=== PATIENT | female | born 1945 | race Caucasian/White ===

== ENCOUNTER 2017-07-05 19:08 | Observation (INO) | payer MEDICARE, BC ==
[2017-07-05] MEDS ORDERED: ACETAMINOPHEN 500 MG 500 MG TAB PO ONE (20:08)
[2017-07-05] MEDS ORDERED: ACETAMINOPHEN 500 MG 500 MG TAB ONE (20:21)
[2017-07-05 20:40] LABS: APPEARANCE,URINE Clear; BILIRUBIN,URINE NEGATIVE (NEGATIVE); COLOR,URINE Yellow; GLUCOSE, URINE (UA) NEGATIVE (NEGATIVE); KETONES,URINE NEGATIVE (NEGATIVE); LEUKOCYTE ESTERASE ,URINE 1+ (NEGATIVE); NITRATE,URINE NEGATIVE (NEGATIVE); OCCULT BLOOD,URINE NEGATIVE (NEG-TRACE); UROBILINOGEN,URINE 0.2 (0.2-1.0 EU)
[2017-07-05 20:47] LABS: RBC,URINE NEG (0-3AV/HPF)
[2017-07-05 21:01] LABS: BASOPHILS % (AUTO) 1 % (0-3); EOSINOPHILS % (AUTO) 0 % (0-9); HEMATOCRIT 22 % (35-47); MEAN CORPUSCULAR HGB CONC 34.4 gm/dl (32.0-36.0); NEUTROPHILS % (AUTO) 88.2 % (37-80)
[2017-07-05 21:11] LABS: MEAN CORPUSCULAR VOLUME 101 fL (81-99)
[2017-07-05 21:12] LABS: ANISOCYTOSIS SLIGHT AMT; OVALOCYTES PRESENT
[2017-07-05 21:16] LABS: CALCIUM 8.8 mg/dl (8.5-10.1)
[2017-07-05] MEDS ORDERED: CLINDAMYCIN 150 MG/ML 600 MG in SODIUM CHLORIDE 0.9% 100 ML 100 ML IV ONE (21:45)
[2017-07-05] MEDS ORDERED: CLINDAMYCIN 150 MG/ML SOL ONE (21:50)
[2017-07-05] MEDS ORDERED: TRAMADOL HYDROCHLORIDE 50 MG TAB PO PRN (23:53)
[2017-07-05] MEDS ORDERED: Non-Formulary Medication MISC (Saliva Substitute Combo No.9 [Biotene Dry Mouth Mouthwash PO PRN (23:53)
[2017-07-06 00:47] LABS: BASOPHILS % (AUTO) 0 % (0-3); EOSINOPHILS % (AUTO) 1 % (0-9); HEMATOCRIT 22 % (35-47); MEAN CORPUSCULAR HGB CONC 34.2 gm/dl (32.0-36.0); MONOCYTES % (AUTO) 7.9 % (0-12)
[2017-07-06 00:50] LABS: MEAN CORPUSCULAR VOLUME 99 fL (81-99)
[2017-07-06] MEDS: SODIUM CHLORIDE 0.9% FLUSH 10 ML SOL IV SCH ×3 (01:44→14:54)
[2017-07-06] MEDS: SODIUM CHLORIDE 0.9% 1000ML 1,000 ML IV SCH ×2 (01:44→11:18)
[2017-07-06] MEDS ORDERED: CLINDAMYCIN 150 MG/ML 600 MG in SODIUM CHLORIDE 0.9% 100 ML 100 ML IV SCH (04:30)
[2017-07-06] MEDS ORDERED: CLINDAMYCIN 150 MG/ML SOL ONE (05:50)
[2017-07-06] MEDS ORDERED: SODIUM CHLORIDE 0.9% 100 ML 100 ML IV ONE (05:50)
[2017-07-06] MEDS ORDERED: LEVOTHYROXINE SODIUM 50 MCG TAB PO SCH (07:00)
[2017-07-06 07:24] LABS: HEMATOCRIT 22 % (35-47); MEAN CORPUSCULAR HGB CONC 33.7 gm/dl (32.0-36.0)
[2017-07-06 07:31] LABS: MEAN CORPUSCULAR VOLUME 102 fL (81-99)
[2017-07-06 08:02] LABS: ANISOCYTOSIS SLIGHT; BASOPHILS % (MANUAL) 0 % (0-3); EOSINOPHILS % (MANUAL) 4 % (0-9); LYMPHOCYTES % (MANUAL) 7 % (10-50); OVALOCYTES PRESENT
[2017-07-06] MEDS ORDERED: HYDROXYCHLOROQUINE SULFATE 200 MG TAB PO SCH (09:00)
[2017-07-06] MEDS ORDERED: PROPYLENE GLYCOL EACHEYE SCH (09:00)
[2017-07-06 12:03] LABS: ABO A; ANTIBODY SCREEN Negative; RH TYPE Positive; UNIT TYPE A POSITIVE
[2017-07-06 12:09] LABS: UNIT TYPE A POSITIVE
[2017-07-06] MEDS: SODIUM CHLORIDE 0.9% FLUSH 10 ML SOL IV PRN ×2 (12:33→17:09)
[2017-07-06] MEDS ORDERED: PEG-400/PROPYLENE GLYCOL 1 DROP SOL EACHEYE SCH (14:00)
[2017-07-06] MEDS: FUROSEMIDE 20mg SOL IV SCH ×2 (14:38→17:08)
[2017-07-06 17:08] VITALS: RESP 16; O2SAT 100
[2017-07-06 18:14] VITALS: BP 99/62; PULSE 80; TEMP 98.1
== END 2017-07-06 19:35 | disposition home or self-care (01) | DRG 812 ==
LOC: ED 19:08 → ACUTE CARE 22:34
PROVIDERS: ADMIT Family Medicine; ATTEND Family Medicine
DX: D62 Acute posthemorrhagic anemia (principal); N39.0 Urinary tract infection, site not specified; Z90.49 Acquired absence of other specified parts of digestive tract
CPT/HCPCS: 36415; 71020; 80053; 81001; 83880; 85007; 85018; 85025; 85027; 86850; 86900; 86901; 86920; 87040; 87804; 99070; 99217; 99218; 99291; J1940; J3490